=== PATIENT | female | born 2000 | race Caucasian/White ===

== ENCOUNTER 2023-10-22 17:10 | Emergency (ER) | payer OTHER ==
[2023-10-22 17:20] VITALS: BP 124/73; PULSE 73; RESP 18; TEMP 98; BMI 23.0
[2023-10-22] MEDS ORDERED: IBUPROFEN 600 MG TABLET (FP) PO ONE (17:46)
[2023-10-22] MEDS ORDERED: AMOX TR/POT CLAV 875MG/125MG TABLETS (FP) ONE (17:47)
[2023-10-22] MEDS ORDERED: ACETAMINOPHEN 500 MG TABLET (FP) ONE (17:47)
[2023-10-22] MEDS: ACETAMINOPHEN 500 MG TABLET (FP) PO ONE (17:55)
[2023-10-22] MEDS: IBUPROFEN 600 MG TABLET (FP) PO ONE (17:55)
[2023-10-22] MEDS: AMOX TR/POT CLAV 875MG/125MG TABLETS (FP) PO ONE (17:56)
[2023-10-22] MEDS ORDERED: BACITRACIN ZINC 15 GM TUBE TOPICAL OINTMENT ONE (18:42)
[2023-10-22] MEDS: BACITRACIN 0.9 GM PACKET TP ONE (18:51)
== END 2023-10-22 19:16 | disposition home or self-care (01) ==
LOC: JERFT 17:10
DX: S61.432A Puncture wound without foreign body of left hand, initial encounter (principal); W54.0XXA Bitten by dog, initial encounter
CPT/HCPCS: 73130-TC-LT-FY; 99283-25